=== PATIENT | male | born 1975 | race Caucasian/White ===

== ENCOUNTER → 2017-11-02 16:29 | Outpatient (CLI) | payer MEDICAID, SELFPAY ==
[2017-11-02 16:49] LABS: Basophils # 0.1 K/mm3 (0-0.2); Basophils % 0.9 % (0.1-2.0); Eosinophils # 0.1 K/mm3 (0.0-0.4); Eosinophils % 1.4 % (0.1-12.0); Hematocrit 45.1 % (42.0-52.0); Hemoglobin 15.1 g/dL (14.1-18.0); Lymphocytes # 3.5 K/mm3 (0.7-4.5); Lymphocytes % 41.9 K/mm3 (10-50); Mean Corpuscular HGB Conc 33.6 g/dL (31.8-35.4); Mean Corpuscular Volume 86.3 fl (80-94); Monocytes # 0.4 K/mm3 (0.1-1.0); Monocytes % 4.4 % (1.7-9.3); Neutrophils # 4.2 K/mm3 (1.8-7.8); Neutrophils % 51.4 % (37.0-80.0); Platelet Count 190 K/mm3 (142-424); Red Blood Count 5.22 M/mm3 (4.60-6.20); Red Cell Distribution Width 13.8 % (11.5-17.5); White Blood Count 8.2 K/mm3 (4.8-10.8)
[2017-11-02 18:11] LABS: Alanine Aminotransferase 303 U/L (12-78); Albumin/Globulin Ratio 1.4 (1.1-1.8); Alkaline Phosphatase 116 U/L (46-116); Anion Gap 11.8 mEq/L (5-15); Aspartate Amino Transferase 93 U/L (15-37); Bilirubin,Total 0.8 mg/dL (0.2-1.0); Blood Urea Nitrogen 12 mg/dL (7-18); Calcium 8.7 mg/dL (8.5-10.1); Carbon Dioxide 28 mmol/L (21.0-32.0); Chloride 102 mmol/L (98-107); Creatinine,Serum 0.88 mg/dL (0.70-1.30); Estimated Glomerular Filt Rate > 60 ml/min (>60); GFR (African American) > 60 ML/MIN (>60); Globulin 2.9 gm/dl (1.3-3.2); Glucose 145 mg/dL (74-106); Potassium 3.8 mmoL/L (3.5-5.1); Sodium 138 mmol/L (136-145); Total Protein,Serum 6.9 gm/dL (6.4-8.2)
[2017-11-05 17:13] LABS: Testosterone,Total 720 ng/dL (264-916)
== END ==
PROVIDERS: PCP Nurse Practitioner Family; Visit Provider Nurse Practitioner Family
DX: N52.9 Male erectile dysfunction, unspecified (principal); Z00.00 Encounter for general adult medical examination without abnormal findings
CPT/HCPCS: 36415; 80053; 84403; 85025

== ENCOUNTER 2017-11-18 23:56 | Emergency (ER) | payer MEDICAID, SELFPAY ==
[2017-11-19 00:06] VITALS: BP 157/97; PULSE 88; RESP 18; TEMP 37; O2SAT 98; BMI 22.9
--- NOTE | 2017-11-19 00:09 | XR_ITS ---
XR soft tissue neck CLINICAL INDICATION: ITS.REASON: Choking ORDERING PHYSICIAN: Dixon Palma MD PATIENT AGE: 42 years COMPARISON: None FINDINGS: Unremarkable appearing epiglottis. No obvious prevertebral mass or air-fluid level. No radio opaque foreign body evident. There is spondylosis of the lower cervical spine. There is some nonspecific increased density at the laryngeal region on the lateral view and There is increased density over the C7 vertebral body on the frontal view. This is of questionable clinical significance. CT of the neck with contrast may be of further value. IMPRESSION: 1. Nonspecific increased density of the region of the vocal folds which may be better evaluated with CT 2. Otherwise negative soft tissue neck
--- NOTE | 2017-11-19 00:12 | XR_ITS ---
XR chest 2V HISTORY: Choking, abnormal sensation in throat, feels like something is stuck ITS.REASON: chocking ORDERING PHYSICIAN: Dixon Palma MD PATIENT AGE: 42 years COMPARISON: None available FINDINGS: The cardiomediastinal silhouette and pulmonary vascularity are within normal limits. There is a pectus deformity with resultant obscuration of the right heart border with increased density along the right heart border. The lungs are clear without infiltrates, suspicious nodules, or pleural effusions. There is mild hyperinflation similar to the previous exam No acute bony abnormalities. IMPRESSION: No change with no acute finding Pectus deformity with mild hyperinflation
--- NOTE | 2017-11-19 00:17 | HMH.EDPSOB ---
ED Disposition Referrals: Betty Hair APRN [Primary Care Provider] - - Critical Care Critical Care Time: No Attestation: On 11/18/17, the high probability of a clinically significant, sudden or life threatening deterioration of the following system(s) required my full and direct attention, intervention and personal management. The time I documented below is in addition to time spent performing reported procedures but includes the following listed in this critical care notation. Medical Decision Making Vital Signs: 11/19/17 00:06 Temperature 98.6 F Temperature Source Oral Pulse Rate [Right Radial] 88 Respiratory Rate 18 Blood Pressure [Right Arm] 157/97 Blood Pressure Mean [Right Arm] 117 Blood Pressure Source [Right Arm] Automatic Cuff Blood Pressure Position [Right Arm] Sitting 02 Sat by Pulse Oximetry 98 Oxygen Delivery Method Room Air Orders (Tests/Meds): ED MEDICATIONS Discontinued Medications Generic Name Dose Route Start Last Admin Trade Name Freq PRN Reason Stop Dose Admin Diphenhydramine HCl 25 mg 11/19/17 00:13 Benadryl 50mg/1ml Vial IV 11/19/17 00:14 ONCE ONE Famotidine 20 mg 11/19/17 00:15 Pepcid 20mg/2ml Vial IV 11/19/17 00:16 ONCE ONE Glucagon 1 mg 11/19/17 00:09 Glucagen 1mg/Ml Vial IV 11/19/17 00:10 ONCE ONE Methylprednisolone Sodium Succinate 125 mg 11/19/17 00:13 Solu-Medrol 125mg/2ml Vial IV 11/19/17 00:14 ONCE ONE Metoclopramide HCl 10 mg 11/19/17 00:09 Reglan 10mg/2ml Vial IVP 11/19/17 00:10 ONCE ONE ORDERS Category Date Time Status Chest XR 2 view (NOT portable) [XR chest 2V] Stat Exams 11/19/17 00:12 Ordered Neck soft tissue XR [XR soft tissue neck] Stat Exams 11/19/17 00:09 Ordered Pediatric SOB HPI - General Chief Complaint: Shortness of Breath/Dyspnea Stated Complaint: FB cought in throat Mode of Arrival: Ambulatory Limitations: No Limitations Description of Symptoms (Recalled from ER Triage Doc. by RN): PT REPORTS HE WAS EATING PIZZA AN NOW FEELS LIKE HE HAS SOMETHING STUCK IN HIS THROAT. - History of Present Illness MD complaint: difficulty breathing Onset (ago): hour(s) (11/02) - Related Data Home Medications Medication Instructions Recorded Confirmed Buprenorphine HCl/Naloxone HCl 1 each SL DAILY 11/19/17 11/19/17 [Suboxone 2 mg-0.5 mg Sl Film] Allergies Allergy/AdvReac Type Severity Reaction Status Date / Time phenazopyridine Allergy Mild Unverified 10/19/17 15:16 [PHENAZOPYRIDINE]
--- NOTE | 2017-11-19 00:18 | HMH.EDSOB ---
ED Disposition Clinical Impression: Aspiration into airway Qualifiers: Encounter type: initial encounter Qualified Code(s): T17.908A - Unspecified foreign body in respiratory tract, part unspecified causing other injury, initial encounter Disposition: Left Against Medical Advice Condition on Discharge: Good Additional Instructions: Please feel free to return here at anytime, or go to ER for re-evaluation (+a bronchoscopy). Prescriptions: Albuterol Sulfate [Albuterol HFA Inhaler] 1 - 2 puffs IH Q4-6H PRN #1 inh PRN Reason: Shortness Of Breath Or Wheezing methylPREDNISolone [Medrol] 4 mg PO DIRECTED #1 tab.ds.pk Time of Disposition: :34 - Critical Care Critical Care Time: No Attestation: On 11/18/17, the high probability of a clinically significant, sudden or life threatening deterioration of the following system(s) required my full and direct attention, intervention and personal management. The time I documented below is in addition to time spent performing reported procedures but includes the following listed in this critical care notation. Medical Decision Making - Medical Records Medical records reviewed: Yes: I reviewed the patient's medical records. Vital Signs: 11/19/17 00:06 11/19/17 01:18 Temperature 98.6 F Temperature Source Oral Pulse Rate 90 Pulse Rate [Right Radial] 88 Respiratory Rate 18 Blood Pressure [Right Arm] 157/97 Blood Pressure Mean [Right Arm] 117 Blood Pressure Source [Right Arm] Automatic Cuff Blood Pressure Position [Right Arm] Sitting 02 Sat by Pulse Oximetry 98 Oxygen Delivery Method Room Air - Lab Data Lab results reviewed: Yes: I reviewed the patient's lab results. Orders (Tests/Meds): ED MEDICATIONS Discontinued Medications Generic Name Dose Route Start Last Admin Trade Name Freq PRN Reason Stop Dose Admin Albuterol Sulfate 2.5 mg 11/19/17 00:36 11/19/17 01:11 Albuterol 0.083% 2.5mg/3ml Neb IH 11/19/17 00:37 2.5 mg ONCE ONE Administration Diphenhydramine HCl 25 mg 11/19/17 00:13 11/19/17 00:32 Benadryl 50mg/1ml Vial IV 11/19/17 00:14 25 mg ONCE ONE Administration Famotidine 20 mg 11/19/17 00:15 11/19/17 00:33 Pepcid 20mg/2ml Vial IV 11/19/17 00:16 20 mg ONCE ONE Administration Glucagon 1 mg 11/19/17 00:09 Glucagen 1mg/Ml Vial IV 11/19/17 00:10 ONCE ONE Methylprednisolone Sodium Succinate 125 mg 11/19/17 00:13 11/19/17 00:33 Solu-Medrol 125mg/2ml Vial IV 11/19/17 00:14 125 mg ONCE ONE Administration Metoclopramide HCl 10 mg 11/19/17 00:09 Reglan 10mg/2ml Vial IVP 11/19/17 00:10 ONCE ONE - Radiology Data #1 Image(s): Chest Image Reviewed: Yes I reviewed the patient's radiology image Preliminary Findings: Normal/NAD #2 Image(s): Other (Soft tissue lateral neck) Image Reviewed: Yes I reviewed the patient's radiology image Preliminary Findings: Normal/NAD - Viktor Inquiry Pt receiving controlled substance: No - Reevaluation(s) Time: 01:20 Reevaluation #1: Case discussed with Dr. Fercho Islas, press set up person for ENT for this facility. I have advised Dr. Islas patient's findings and presentation, the fact that he is actually able to eat solid food and drink liquids with no distress but he is expressing a foreign body sensation in his mid airway, specifically in the thoracic trachea. I have asked Dr. Islas if he can come to our emergency room to evaluate patient and perform a bronchoscopy. I have also advised that he does not have a rigid bronchoscope for such procedure and he will not be able to assist. I further inquired into Dr. Islas's ability to have patient transferred to [facility] where he is a ENT specialist. also advised that he has to the seventh in the morning and he would not be able to help either. Time: 01:25 Reevaluation #3: I have advised patient of the conversation with the ENT specialist and advised him that
[2017-11-19 01:18] VITALS: PULSE 90; PULSE 93
== END 2017-11-19 01:44 | disposition left against medical advice (07) ==
PROVIDERS: Emergency Provider Emergency Medicine; Family Provider Internal Medicine Adolescent Medicine; PCP Nurse Practitioner Family
DX: T17.908A Unspecified foreign body in respiratory tract, part unspecified causing other injury, initial encounter (principal); Z79.899 Other long term (current) drug therapy; Z88.8 Allergy status to other drugs, medicaments and biological substances; F11.11 Opioid abuse, in remission
CPT/HCPCS: 70360; 71046; 96374; 96375; 99283

== ENCOUNTER → 2018-05-11 16:08 | Outpatient (REF) | payer MEDICAID, SELFPAY ==
[2018-05-11 17:33] LABS: Basophils # 0.1 K/mm3 (0-0.2); Basophils % 0.8 % (0.1-2.0); Eosinophils # 0.1 K/mm3 (0.0-0.4); Eosinophils % 1.3 % (0.1-12.0); Hematocrit 45.1 % (42.0-52.0); Hemoglobin 14.8 g/dL (14.1-18.0); Lymphocytes # 3.3 K/mm3 (0.7-4.5); Lymphocytes % 38.1 K/mm3 (10-50); Mean Corpuscular HGB Conc 32.9 g/dL (31.8-35.4); Mean Corpuscular Hemoglobin 28.7 pg (27.0-31.2); Monocytes # 0.4 K/mm3 (0.1-1.0); Neutrophils # 4.7 K/mm3 (1.8-7.8); Neutrophils % 54.8 % (37.0-80.0); Platelet Count 177 K/mm3 (142-424); Red Blood Count 5.18 M/mm3 (4.60-6.20); White Blood Count 8.6 K/mm3 (4.8-10.8)
[2018-05-11 18:16] LABS: Alanine Aminotransferase 71 U/L (12-78); Albumin Level 4.2 gm/dL (3.4-5.0); Albumin/Globulin Ratio 1.4 (1.1-1.8); Alkaline Phosphatase 89 U/L (46-116); Aspartate Amino Transferase 47 U/L (15-37); Bilirubin,Total 0.7 mg/dL (0.2-1.0); Blood Urea Nitrogen 12 mg/dL (7-18); Calcium 9.2 mg/dL (8.5-10.1); Carbon Dioxide 27 mmol/L (21.0-32.0); Chloride 103 mmol/L (98-107); Chol/HDL Ratio 2.5 (1-3.5); Cholesterol 173 mg/dL (140-200); Creatine Kinase 260 U/L (39-308); Creatinine,Serum 0.95 mg/dL (0.70-1.30); Estimated Glomerular Filt Rate 87 ml/min (>60); GFR (African American) 105 ML/MIN (>60); Globulin 3.1 gm/dl (1.3-3.2); Glucose 107 mg/dL (74-106); HDL Cholesterol 68 mg/dL (27-67); LDL Cholesterol 98 mg/dL (0-130); Sodium 137 mmol/L (136-145); T4 (Thyroxine) 12.1 ug/dl (4.7-13.3); Thyroid Stimulating Hormone 1.47 uIU/ml (0.358-3.740); Total Protein,Serum 7.3 gm/dL (6.4-8.2); Triglycerides 36 mg/dL (30-200); VLDL Cholesterol 7 mg/dL (0-40)
[2018-05-13 17:59] LABS: Aldolase 6.2 U/L (3.3-10.3)
[2018-05-20 11:57] LABS: Hepatitis C Genotype 1a (.)
== END ==
LOC: LAB 16:08
PROVIDERS: Visit Provider Physician Assistant
DX: G71.0 Muscular dystrophy (principal); B18.2 Chronic viral hepatitis C; R63.4 Abnormal weight loss
CPT/HCPCS: 80053; 80061; 82085; 82550; 84436; 84443; 85025; 87522

== ENCOUNTER → 2018-10-12 18:35 | Outpatient (CLI) | payer MEDICAID, SELFPAY ==
[2018-10-12 22:40] LABS: Amphetamine/Metha Screen,Urine Negative ng/mL (<1000); Barbiturates Screen,Urine Negative ng/mL (<200); Benzodiazepines Screen,Urine Negative ng/mL (<200); Cannabinoid Screen,Urine Positive ng/mL (<50); Cocaine Screen,Urine Negative ng/mL (<300); Methadone Screen,Urine Negative ng/mL (<300); Opiate Screen,Urine Negative ng/mL (<300); Phencyclidine Screen,Urine Negative ng/mL (<25)
== END ==
PROVIDERS: Visit Provider Physician Assistant
DX: Z79.899 Other long term (current) drug therapy (principal)
CPT/HCPCS: 80305

== ENCOUNTER 2020-10-17 17:10 | Emergency (ER) | payer MEDICAID, SELFPAY ==
[2020-10-17 17:15] VITALS: BP 144/91; PULSE 71; RESP 19; TEMP 36.9; O2SAT 98; BMI 21.5
--- NOTE | 2020-10-17 17:25 | HMH.EDUTC ---
[facility] [place] Clinical Impression: URI (upper respiratory infection) Qualifiers: URI type: unspecified URI Qualified Code(s): J06.9 - Acute upper respiratory infection, unspecified Disposition: Home, Self-Care Condition on Discharge: Good Instructions: Sore Throat, Azithromycin, DI for COVID-19 (Suspected or Confirmed ), COVID-19 Viral Test, COVID-19: Testing and Tracing, Preventing the Spread of Coronavirus Discharge Instructions Additional Instructions: ? Start antibiotic today. Be sure to complete entire prescription even if feeling better ? Monitor temp. Tylenol every 4 hours as needed and / or ibuprofen every 6 hours as needed ( As long as your primary care physician has told you that it ok to take both. For fever/aches/pains ER if no less than 101 despite Tylenol or Motrin ? Humidifier/vaporizer or hot steamy shower ? Mucinex during the day for your cough and cough suppressant only at night. Be sure to drink lots of water. Insurance may not cover a prescriptions for mucinex. Might be cheaper to get 400mg tablets and take 2 tablet in the morning, mid-day and evening with lots of water. Start steroid today. Helps with inflammation therefore, cough and wheezing. Follow directions on the package. Reviewed side effects. Patient reports taking them before. Follow up IMMEDIATELY for new or worsening of symptoms OR no noticeable improvement over the next 48-72 hours. 911 immediately for any life threatening symptoms such as chest pain or difficulty breathing Prescriptions: Albuterol Sulfate [Proventil-HFA 90mcg/puff Inh] 1 - 2 puffs IH Q4HP PRN #1 inh PRN Reason: Shortness Of Breath Transmission Status: Pending to [facility] methylPREDNISolone [Medrol 4mg tab] 4 mg PO DIRECTED #21 tab Transmission Status: Pending to [facility] Benzonatate [Tessalon Perle 100mg Cap*] 100 mg PO TID PRN #15 cap PRN Reason: Cough Transmission Status: Pending to [facility] Azithromycin [Z-Vinicius 250mg Tab] 250 mg PO DIRECTED #6 tab Transmission Status: Pending to [facility] Referrals: PCP,No [Primary Care Provider] - As needed Forms: Work/School Release Time of Disposition: 17:28 Medical Decision Making - Viktor Inquiry Pt receiving controlled substance: No Viktor was queried for this patient: No Vital Signs: 10/17/20 17:15 Temperature 98.5 F Temperature Source Oral Pulse Rate [Right Brachial] 71 Respiratory Rate 19 Blood Pressure [Right Arm] 144/91 H Blood Pressure Mean [Right Arm] 108 Blood Pressure Source [Right Arm] Automatic Cuff Blood Pressure Position [Right Arm] Sitting 02 Sat by Pulse Oximetry 98 Oxygen Delivery Method Room Air - Lab Data Lab results reviewed: Yes: I reviewed the patient's lab results. Lab Results 10/17/20 17:26: Strep Scn Rapid Clinic Negative Orders (Tests/Meds): ORDERS Category Date Time Status Covid-19 Nasal PCR Sendout P&C Stat Lab 10/17/20 17:13 Received Strep Screen Confirmation Stat Micro 10/17/20 17:26 Received [facility] [place] HPI - General Stated complaint: covid mikhail Time Seen by Provider: 10/17/20 17:26 Mode of Arrival: Ambulatory Source of Information: Patient Limitations: No Limitations Description of Symptoms (Recalled from Triage Doc. by RN): PATIENT C/O COUGH, BODY ACHES, HEADACHE, AND CHILLS X 1 WEEK HEENT Symptoms (Recalled from RN notes): Yes Resp Symptoms (Recalled from RN notes): Yes Skin Symptoms (Recalled from RN notes): No MS Symptoms (Recalled from RN notes): No Functional Status (Recalled from RN notes): WNL - History of Present Illness Provider Complaint: Patient states that he has been having sore throat, body aches, chills and headache for over a week State that he has tried several over the counter medications but nothing has helped States that today he decided to come in and get checked - Related Data Home Medications Medication Instructions Recorded Confirmed Buprenorphine HCl/Naloxone HCl 1
[2020-10-17 17:42] LABS: UTC Strep Screen (Rapid) Negative (Negative)
[2020-10-17 17:54] VITALS: BP 144/91; PULSE 71; RESP 19; TEMP 36.9; O2SAT 98
[2020-10-19 10:57] LABS: Covid-19 Nasal PCR Sendout P&C NEGATIVE
== END 2020-10-17 18:00 | disposition home or self-care (01) ==
PROVIDERS: Emergency Provider Nurse Practitioner
DX: Z20.828 Contact with and (suspected) exposure to other viral communicable diseases (principal); J06.9 Acute upper respiratory infection, unspecified; F41.8 Other specified anxiety disorders; F17.210 Nicotine dependence, cigarettes, uncomplicated
CPT/HCPCS: 87880; 99202; U0004

== ENCOUNTER → 2021-07-30 16:22 | Outpatient (CLI) | payer OTHER, SELFPAY | PROVIDERS: Visit Provider Nurse Practitioner | DX: Z20.822 Contact with and (suspected) exposure to COVID-19 (principal) | CPT/HCPCS: C9803; U0003; U0005 ==

== ENCOUNTER → 2021-08-04 08:22 | Outpatient (CLI) | payer OTHER, SELFPAY | PROVIDERS: Visit Provider Nurse Practitioner | DX: Z20.822 Contact with and (suspected) exposure to COVID-19 (principal) | CPT/HCPCS: C9803; U0003; U0005 ==

== ENCOUNTER → 2022-02-10 16:02 | Outpatient (CLI) | payer OTHER, SELFPAY ==
[2022-02-10 18:54] LABS: Basophils # 0.1 K/mm3 (0-0.2); Basophils % 1.3 % (0.1-2.0); Eosinophils % 0.5 % (0.1-12.0); Hematocrit 44.1 % (42.0-52.0); Lymphocytes # 2.5 K/mm3 (0.7-4.5); Mean Corpuscular HGB Conc 34.1 g/dL (31.8-35.4); Mean Corpuscular Hemoglobin 31.3 pg (27.0-31.2); Mean Corpuscular Volume 91.8 fl (80-94); Mean Platelet Volume 9.3 fl (7.4-10.4); Monocytes # 0.4 K/mm3 (0.1-1.0); Monocytes % 5.1 % (1.7-9.3); Neutrophils # 4.4 K/mm3 (1.8-7.8); Neutrophils % 59.2 % (37.0-80.0); Platelet Count 202 K/mm3 (142-424); Red Cell Distribution Width 13.8 % (11.5-17.5); White Blood Count 7.4 K/mm3 (4.8-10.8)
[2022-02-10 18:58] LABS: Alanine Aminotransferase 46 U/L (12-78); Albumin Level 4.5 g/dl (3.5-5.0); Albumin/Globulin Ratio 1.6 (1.1-1.8); Alkaline Phosphatase 68 U/L (38-126); Anion Gap 9.3 mEq/L (5-15); Aspartate Amino Transferase 45 U/L (17-59); Bilirubin,Total 0.8 mg/dl (0.2-1.3); Blood Urea Nitrogen 17 mg/dl (9-20); Calcium 9.3 mg/dl (8.4-10.2); Carbon Dioxide 29 mmol/L (22.0-30.0); Chloride 104 mmol/L (98-107); Chol/HDL Ratio 2.5 (1-3.5); Cholesterol 171 mg/dl (140-200); Estimated Glomerular Filt Rate 104 ml/min (>60); GFR (African American) 126 ML/MIN (>60); Globulin 2.8 g/dL (1.3-3.2); Glucose 88 mg/dl (74-100); HDL Cholesterol 69 mg/dl (40-60); Potassium 4.3 mmoL/L (3.5-5.1); Sodium 138 mmol/L (136-145); Total Protein,Serum 7.3 g/dl (6.3-8.2); Triglycerides 81 mg/dl (30-150); VLDL Cholesterol 16 mg/dL (0-40)
[2022-02-10 19:09] LABS: Direct LDL Cholesterol 68.28 mg/dL (100-129)
[2022-02-10 19:13] LABS: Free T4 (Free Thyroxine) 1.58 ng/dl (0.78-2.19)
[2022-02-10 19:29] LABS: Thyroid Stimulating Hormone 1.79 uIU/mL (0.465-4.68)
[2022-02-14 20:09] LABS: HCV Genotype Charge YES; Hepatitis C Genotype 1a (.)
== END ==
PROVIDERS: Visit Provider Emergency Medicine
DX: B19.20 Unspecified viral hepatitis C without hepatic coma (principal)
CPT/HCPCS: 80053; 80061; 84439; 84443; 85025; 87522; 87902

== ENCOUNTER → 2022-11-04 14:51 | Outpatient (CLI) | payer OTHER, SELFPAY ==
--- NOTE | 2022-11-04 14:58 | XR_ITS ---
FINAL REPORT CLINICAL HISTORY: wrist pain FINDINGS: LEFT WRIST Three views demonstrate no acute fracture or dislocation. The visualized joint spaces are normally aligned. The joint spaces are intact. The soft tissues are unremarkable. IMPRESSION: No acute bony abnormality. Reviewed, Interpreted and Dictated by Chencho Dalton MD Transcribed by Nataliia King Authenticated and [facility]
--- NOTE | 2022-11-04 14:58 | XR_ITS ---
FINAL REPORT CLINICAL HISTORY: wrist pain FINDINGS: RIGHT WRIST Three views demonstrate no acute fracture or dislocation. The visualized joint spaces are normally aligned. The joint spaces are intact. The soft tissues are unremarkable. IMPRESSION: No acute bony abnormality. Reviewed, Interpreted and Dictated by Chencho Dalton MD Transcribed by Nataliia King Authenticated and . [facility]
== END ==
PROVIDERS: PCP Emergency Medicine; Visit Provider Orthopaedic Surgery
DX: M25.532 Pain in left wrist (principal); M25.531 Pain in right wrist
CPT/HCPCS: 73110